=== PATIENT | male | born 1945 | race Caucasian/White ===

== ENCOUNTER → 2016-04-13 | Outpatient (CLI) | payer MEDICARE, OTHER ==
[~2016-04-13] MED LIST: ALBUTEROL MDI INH; ALPRAZOLAM PO; ASPIRINEC PO; BLOOD PRESSURE; COREG6.25 MG PO; FLOMAX0.4 M1 PO; IBUPROFEN PO; LOTREL 5/20 MG1 CAP PO; NEURONTIN600 MG PO; OMEPRAZOLE40 MG PO; PLETAL100 MG PO; PRAVASTATIN SOD40 MG PO; PREDNISONE PO; SERTRALINE HCL100 M1 PO; SIMVASTATIN20 MG PO; VICODIN 5/500 T1 TAB PO
--- NOTE | ~2016-04-13 | ST ---
Unit #: [id number] #: [id number] Patient: SHIRA TO [id number] [id number] [place], [place] [address] [id number] O MR#: [id number] NAME: SHIRA TO : 1945 SEX: M STUDY DATE/TIME: UNIT: [facility] ROOM: STUDY DESCRIPTION: Stress Test Attending Physician: Cesar Fagan M.D. Referring Physician: Cesar Fagan M.D. Primary Care Physician: Wallace Ralph M.D. CARDIOLOGY REPORT EXAM Lexiscan Cardiolite Stress Test DESCRIPTION Baseline EKG - sinus bradycardia, heart rate 57 beats per minute, borderline right bundle branch block, left atrial abnormality, slow R wave progression. Lexiscan is a four minute test with Lexiscan being injected within the first minute followed by Cardiolite. EKG during the test showed some nonspecific ST-T wave abnormalities in V3 and V4. Otherwise, unremarkable. The patient had no complaints of chest pain or palpitations. Had some complaints of dizziness and lightheadedness which resolved in recovery phase. Maximum heart rate response was 90 beats per minute with a maximum blood pressure response of 152/93 mmHg. Cardiolite was injected after Lexiscan within the first minute of the test. Radionuclide test pending. Please correlate with nuclear images. Dictated by... Kandice Shelby A.P.R.N. for Donna Pena/cristopher TD: 04/13/2016 10:48 JOB #: [id number] CC: Warren Real M.D. Unit #: [id number] #: [id number] Patient: SHIRA TO CARDIOLOGY REPORT X Kandice Shelby APRN CARDIOLOGY REPORT
--- NOTE | ~2016-04-13 | TH ---
Unit #: [id number] #: [id number] Patient: SHIRA TO [id number] [address] [address] [id number] O MR#: [id number] NAME: SHIRA TO : 1945 SEX: M STUDY DATE/TIME: 04/13/2016 UNIT: [facility] ROOM: STUDY DESCRIPTION: Attending Physician: Cesar Fagan M.D. Referring Physician: Cesar Fagan M.D. Primary Care Physician: Wallace Ralph M.D. CARDIOLOGY REPORT EXAM Lexiscan Cardiolite stress test, nuclear portion. PROCEDURE Using technetium 99m labeled Cardiolite, rest and stress SPECT images were obtained. Multiple SPECT images were obtained in various views including horizontal and vertical long axis and short axis views of the left ventricle. Images were obtained by gated SPECT method. The patient was administered 11.14 mCi of Cardiolite at rest. The patient was administered 34.5 mCi of Cardiolite after Lexiscan infusion was completed. On the stress images, there is normal perfusion noted. The rest images show normal perfusion. Comparing rest and stress images, there is no stress-induced ischemia noted. The left ventricular ejection fraction is calculated to be 66%. There is no focal wall motion abnormality seen. CONCLUSION 1. No stress-induced ischemia noted. 2. The left ventricular ejection fraction is calculated to be 66%. 3. There is no focal wall motion abnormality seen. 4. Normal Lexiscan Cardiolite stress test. Dictated by... Donna Pena TD: 04/13/2016 16:48 JOB #: [id number] CC: Cesar Fagan M.D. CARDIOLOGY REPORT X Nessa Ly MD <ELECTRONICALLY SIGNED> 09/02/16 1428 CARDIOLOGY REPORT
== END | disposition home or self-care (01) ==
LOC: CNUC 06:56
DX: Z01.810 Encounter for preprocedural cardiovascular examination (principal); R07.9 Chest pain, unspecified
CPT/HCPCS: 78452; 93017; A9500; J2785

== ENCOUNTER → 2016-06-01 | Outpatient (CLI) | payer MEDICARE, OTHER ==
--- NOTE | ~2016-06-01 | US83 ---
[facility] A Service of [facility] & [facility] RADIOLOGY TEXT RESULTS PATIENT: SHIRA TO LOCATION: CNIV : 41 UNIT #: [id number] AGE: [address]: Warren Real MD SEX: M ORDER DR: [id number] [facility] [address] [place], [place] [address] [id number] O MR#: [id number] Acc #: [id number] NAME: SHIRA TO : 1945 SEX: M STUDY DATE/TIME: 06/01/2016 9:22 UNIT: [facility] ROOM: STUDY DESCRIPTION: [facility] [employer] Attending Physician: Warren Real M.D. Referring Physician: Warren Real M.D. Ordering Physician: Warren Real M.D. Primary Care Physician: Wallace Ralph M.D. MEDICAL IMAGING REPORT This report is preliminary unless electronic signature is present DATE OF EXAMINATION 06/01/2016 EXAM Right lower extremity arterial duplex. FINDINGS The right common femoral artery has triphasic flow with a velocity of 55 cm/sec. The proximal anastomosis is visualization with a velocity of 14.5 cm/sec, velocity in the midthigh graft measures 31 cm/sec, with biphasic flow, distal graft 30 cm/sec, with biphasic flow, below knee 33 cm/sec, biphasic flow, and at the calf 45 cm/sec, with biphasic flow, distal anastomosis 52 cm/sec, with monophasic flow. The distal runoff is 120 cm/sec. IMPRESSION Patent right lower extremity bypass graft. There are some areas within the graft with low velocities, which in the setting of a vein bypass graft may indicate pending failure. However, based on ultrasound appearance, this appears to be a prosthetic graft. Dictated by... Juancho Roberto M.D. THIS IS AN ELECTRONICALLY VERIFIED REPORT Juancho Roberto M.D. at 06/01/2016 2:49 PM TEE/silvina TD: 06/01/2016 12:03 JOB #: [id number] ST[facility]. [facility] A Service of [facility] & [facility] RADIOLOGY TEXT RESULTS PATIENT: SHIRA TO LOCATION: [facility] : [birth year] UNIT #: [id number] AGE: [address]: Warren Real MD SEX: M ORDER DR: MEDICAL IMAGING REPORT Page 1 of 1 COPY
--- NOTE | ~2016-06-01 | US136 ---
[facility] A Service of [facility] RADIOLOGY TEXT RESULTS PATIENT: SHIRA TO LOCATION: CNIV : 41 UNIT #: [id number] AGE: [address]: Warren Real MD SEX: M ORDER DR: [id number] [facility] [address] [place], [place] [address] [id number] O MR#: [id number] Acc #: [id number] NAME: SHIRA TO : 1945 SEX: M STUDY DATE/TIME: 06/01/2016 8:37 UNIT: [facility] ROOM: STUDY DESCRIPTION: U/L [facility] Art Study [facility] Bil Attending Physician: Warren Real M.D. Referring Physician: Warren Real M.D. Ordering Physician: Warren Real M.D. Primary Care Physician: Wallace Ralph M.D. MEDICAL IMAGING REPORT This report is preliminary unless electronic signature is present EXAM Ankle-brachial indices HISTORY Status post left above-knee amputation, right leg bypass FINDINGS The right brachial artery pressure is 103. Ankle pressures and thigh pressures were not taken because of the presence of a bypass graft. The right digital pressure is 79, with a toe index of 0.77. The left brachial artery pressure is 99. The patient has a left above-knee amputation. Wave forms demonstrate monophasic wave forms of the right posterior tibial and dorsalis pedis arteries. Right digital pressure demonstrates a prolonged upstroke and broadened systolic peak. IMPRESSION 1. GEOVANNA of the right leg are not obtained because of the presence of a bypass graft. Wave forms and toe pressure, however, suggest mild to moderate disease. 2. Left GEOVANNA is not obtained because of presence of an above-knee amputation. Dictated by... Juancho Roberto M.D. THIS IS AN ELECTRONICALLY VERIFIED REPORT Juancho Roberto M.D. at 06/01/2016 2:48 PM AC/gladis [facility] A Service of [facility] RADIOLOGY TEXT RESULTS PATIENT: TO,SHIRA LOCATION: CNIV : 41 UNIT #: [id number] AGE: [address]: Warren Real MD SEX: M ORDER DR: TD: 06/01/2016 11:44 JOB #: [id number] MEDICAL IMAGING REPORT Page 1 of 1 COPY
== END | disposition home or self-care (01) ==
LOC: CNIV 08:27
DX: I73.9 Peripheral vascular disease, unspecified (principal); Z89.612 Acquired absence of left leg above knee; Z98.890 Other specified postprocedural states
CPT/HCPCS: 93922; 93926